=== PATIENT | male | born 1975 | race Caucasian/White ===

== ENCOUNTER 2016-07-10 16:58 | Emergency (ER) | payer OTHER | END 2016-07-10 18:50 | disposition home or self-care (01) | LOC: ER1 16:58 | DX: G89.29 Other chronic pain (principal); M54.5 Low back pain; K21.9 Gastro-esophageal reflux disease without esophagitis; I11.9 Hypertensive heart disease without heart failure; I25.10 Atherosclerotic heart disease of native coronary artery without angina pectoris; E11.9 Type 2 diabetes mellitus without complications; F17.210 Nicotine dependence, cigarettes, uncomplicated; Z95.5 Presence of coronary angioplasty implant and graft; Z79.82 Long term (current) use of aspirin; Z79.899 Other long term (current) drug therapy | CPT/HCPCS: 72131; 96372; 99283; J1885 ==

== ENCOUNTER 2016-11-03 00:22 | Emergency (ER) | payer OTHER | END 2016-11-03 04:54 | disposition home or self-care (01) | LOC: ER1 00:22 | DX: L03.115 Cellulitis of right lower limb (principal); I11.9 Hypertensive heart disease without heart failure; E11.9 Type 2 diabetes mellitus without complications; F17.210 Nicotine dependence, cigarettes, uncomplicated; Z79.02 Long term (current) use of antithrombotics/antiplatelets; Z79.82 Long term (current) use of aspirin; Z95.5 Presence of coronary angioplasty implant and graft | CPT/HCPCS: 99283 ==

== ENCOUNTER 2020-06-05 22:54 | Emergency (ER) | payer OTHER ==
[~2020-06-05 22:54] MED LIST: AMLODIPINE BESY10 MG PO; ASPIR 8181 MG PO; ATORVASTATIN CA20 MG PO; AUGMENTIN 875-1 EACH PO; BYDUREON P2 MG/0.65 SQ; CIPRO500 MG PO; FLEXERIL 10 MG10 MG PO; HYDRALAZINE HCL25 MG PO; JANUVIA100 MG PO; LANTUS100 UNIT/1 SC; LIPITOR TAB 2020 MG PO; LISINOPRIL10 MG PO; LOPRESSOR 25 MG25 MG PO; MECLIZINE HCL25 MG PO; NITROGLYCERIN0.4 MG SL; OZEMPIC1 MG/0.75 SQ; PERCOCET 5-3251 EACH PO; PLAVIX75 MG PO; PRILOSEC OTC20 MG PO; TOUJEO MAX300 UNIT/1 SQ; VIBRAMYCIN 100100 MG PO; ZESTRIL 40 MG T40 MG PO; [UNRECOGNIZED DRUG - OTHER] SC
[2020-06-06 00:26] LABS: HEMOGLOBIN 14.4 gm/dl (14.0-17.5); RED BLOOD COUNT 5.17 M/UL (4.20-5.50); WHITE BLOOD COUNT 7.4 K/UL (4.5-11.0)
[2020-06-06 00:41] LABS: BUN/CREATININE RATIO 14 (0-10)
== END 2020-06-06 03:14 | disposition home or self-care (01) ==
LOC: ER1 22:54
PROVIDERS: Student in an Organized Health Care Education/Training Program
DX: R00.2 Palpitations (principal); I10 Essential (primary) hypertension; E11.9 Type 2 diabetes mellitus without complications; F17.200 Nicotine dependence, unspecified, uncomplicated; Z95.5 Presence of coronary angioplasty implant and graft
CPT/HCPCS: 71046; 80053; 82550; 82553; 83605; 83690; 83735; 83874; 83880; 84100; 84484; 85025; 93005; 99285

== ENCOUNTER 2020-07-23 14:22 | Emergency (ER) | payer OTHER ==
[2020-07-23 15:26] LABS: BUN/CREATININE RATIO 13 (0-10)
[2020-07-23 15:46] LABS: RED BLOOD COUNT 5.13 M/UL (4.20-5.50); WHITE BLOOD COUNT 5.8 K/UL (4.5-11.0)
[2020-07-23] MEDS ORDERED: HYDROCODON-ACE1 EAC4 PO ×2 (16:13→16:33)
== END 2020-07-23 16:39 | disposition home or self-care (01) ==
LOC: ER1 14:22
PROVIDERS: Emergency Medicine
DX: I10 Essential (primary) hypertension (principal); M25.562 Pain in left knee; M79.652 Pain in left thigh; M79.662 Pain in left lower leg; E66.9 Obesity, unspecified; F17.200 Nicotine dependence, unspecified, uncomplicated; Z79.899 Other long term (current) drug therapy
CPT/HCPCS: 71045; 80053; 82550; 82553; 83874; 84484; 85025; 85379; 99283

== ENCOUNTER 2021-05-06 03:29 | Emergency (ER) | payer OTHER ==
[~2021-05-06 03:29] MED LIST changes: +HYDROCODON-ACE1 EAC4 PO
== END 2021-05-06 04:03 | disposition left against medical advice (07) ==
LOC: ER1 03:29
DX: Z53.21 Procedure and treatment not carried out due to patient leaving prior to being seen by health care provider (principal)

== ENCOUNTER 2021-05-09 00:17 | Emergency (ER) | payer OTHER ==
[2021-05-09 01:02] LABS: RED BLOOD COUNT 5.68 M/UL (4.20-5.50); WHITE BLOOD COUNT 8.1 K/UL (4.5-11.0)
[2021-05-09 01:51] LABS: BUN/CREATININE RATIO 15 (0-10)
== END 2021-05-09 04:26 | disposition home or self-care (01) ==
LOC: ER1 00:17
PROVIDERS: Family Medicine
DX: R53.83 Other fatigue (principal); E11.9 Type 2 diabetes mellitus without complications; Z20.822 Contact with and (suspected) exposure to COVID-19; E66.01 Morbid (severe) obesity due to excess calories; E78.5 Hyperlipidemia, unspecified
CPT/HCPCS: 71045; 80053; 82550; 82553; 84484; 85025; 85610; 85730; 93005; 99284; U0002